=== PATIENT | male | born 1990 | race Caucasian/White ===

== ENCOUNTER 2018-12-16 13:33 | Emergency (ER) | payer MEDICAID ==
--- NOTE | 2018-12-16 14:18 | ERPHSYRPT ---
- History of Present Illness Time Seen by Provider: 12/16/18 14:00 Source: patient Exam Limitations: no limitations Patient Subjective Stated Complaint: Pt states "I have been having quite a bit of pain either in my kidney or liver. It has been going on for over a month." Triage Nursing Assessment: Pt presented alert and orietned X 3, ski pwd Pt ambulates with an upright steady gait, able to speak in clear full sentences. PT in no apparent respiratory distress. Physician History: Patient has pain in the right CVA/back area for the past month, worse over the past 4 days. Timing/Duration: week(s) (4), worse (4 days) Method of Injury: unknown Quality: aching Back Pain Location: paraspinous muscles (right side) Severity of Pain-Max: moderate Severity of Pain-Current: mild Modifying Factors: Worsens With: movement Associated Symptoms: other (feels like it is swollen), No fever, No chills, No sweating, No urinary incontinence, No loss of bowel control, No constipation, No nausea, No vomiting, No problems urinating, No light-headedness, No dizziness , No numbness in legs/feet, No weakness, No sensory/motor loss, No tingling in legs/feet, No lower back pain, No muscle spasms Previous symptoms: different symptoms (history of kidney stones, but concern about possible his liver although denies any abdominal pain), no recent treatment Allergies/Adverse Reactions: No Known Drug Allergies Allergy (Unverified 12/16/18 13:49) Home Medications: No Reportable Medications [No Reported Medications] 12/16/18 [History] Hx Tetanus, Diphtheria Vaccination/Date Given: Yes Hx Influenza Vaccination/Date Given: No Hx Pneumococcal Vaccination/Date Given: No Immunizations Up to Date: Yes - Review of Systems Constitutional: No Fever, No Chills, No Fatigue, No Malaise Eyes: No Symptoms, No Vision Changes Ears, Nose, & Throat: No Symptoms Respiratory: No Cough, No Dyspnea Cardiac: No Chest Pain, No Edema, No Syncope Abdominal/Gastrointestinal: No Abdominal Pain, No Nausea, No Vomiting, No Diarrhea Genitourinary Symptoms: No Dysuria, No Flank Pain Musculoskeletal: Back Pain, No Neck Pain Skin: No Rash Neurological: No Dizziness, No Focal Weakness, No Headache, No Sensory Changes Psychological: No Symptoms Endocrine: No Symptoms Hematologic/Lymphatic: No Easy Bleeding, No Easy Bruising All Other Systems: Reviewed and Negative - Past Medical History Pertinent Past Medical History: No - Past Surgical History Past Surgical History: Yes Other Surgical History: left hand. hernia X 3 - Social History Smoking Status: Former smoker Exposure to second hand smoke: Yes Drug Use: none Patient Lives Alone: No - Nursing Vital Signs Nursing Vital Signs: Initial Vital Signs Temperature 99.2 F 12/16/18 13:44 Pulse Rate 62 12/16/18 13:44 Respiratory Rate 18 12/16/18 13:44 Blood Pressure 146/86 12/16/18 13:44 O2 Sat by Pulse Oximetry 98 12/16/18 13:44 Pain Scale Pain Intensity 4 - Physical Exam General Appearance: no apparent distress, alert Eye Exam: PERRL/EOMI, eyes nml inspection, No scleral icterus Ears, Nose, Throat Exam: normal ENT inspection, pharynx normal Neck Exam: normal inspection, non-tender, supple, full range of motion, No meningismus, No midline tenderness Respiratory Exam: normal breath sounds, lungs clear, airway intact, No respiratory distress, No accessory muscle use, No crackles/rales, No rhonchi, No wheezing, No stridor Cardiovascular Exam: regular rate/rhythm, normal heart sounds, normal peripheral pulses, capillary refill <2 sec Gastrointestinal Exam: soft, normal bowel sounds, No tenderness, No distention, No mass, No guarding, No pulsatile mass, No rebound, No hernia, No hepatomegaly Back Exam: normal inspection, normal range of motion, No CVA tenderness, No vertebral tenderness, No rash Extremity Exam: normal inspection, normal range of motion, pelvis stable, No calf tenderness, No pedal edema Neurologic Exam: alert, oriented x 3, cooperative, 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, normal mood/affect, nml station & gait, sensation nml, No motor deficits Skin Exam: normal color, warm, dry, No rash SpO2 Interpretation: normal SpO2: 98 O2 Delivery: Room Air - Course Nursing assessment & vital signs reviewed: Yes Ordered Tests: Active Orders 24 hr Category Date Time Status CBC W DIFF Stat Lab 12/16/18 14:39 Completed CMP Stat Lab 12/16/18 14:39 Completed UA W/RFX UR CULTURE Stat Lab 12/16/18 14:39 Completed Lab/Rad Data: Laboratory Result Diagrams 12/16/18 14:39 12/16/18 14:39 Laboratory Results 12/16/18 12/16/18 12/16/18 Range/Units 14:39 14:39 14:39 WBC 6.1 (4.0-10.5) K/mm3 RBC 4.54 (4.1-5.6) M/mm3 Hgb 14.4 (12.5-18.0) gm/dl Hct 42.4 (42-50) % MCV 93.4 (78-100) fl MCH 31.7 (26-32) pg MCHC 34.0 (32-36) g/dl RDW 12.5 (11.5-14.0) % Plt Count 181 (150-450) K/mm3 MPV 9.5 (6-9.5) fl Gran % 56.3 (36.0-66.0) % Eos # (Auto) 0.35 (0-0.5) Absolute Lymphs (auto) 1.89 (1.0-4.6) Absolute Monos (auto) 0.35 (0.0-1.3) Lymphocytes % 31.1 (24.0-44.0) % Monocytes % 5.8 (0.0-12.0) % Eosinophils % 5.8 H (0.00-5.0) % Basophils % 1.0 (0.0-0.4) % Absolute Granulocytes 3.42 (1.4-6.9) Basophils # 0.06 (0-0.4) Sodium 142 (137-145) mmol/L Potassium 4.0 (3.5-5.1) mmol/L Chloride 104 (98-107) mmol/L Carbon Dioxide 29 (22-30) mmol/L Anion Gap 13.6 (5-15) MEQ/L BUN 17 (9-20) mg/dL Creatinine 0.94 (0.66-1.25) mg/dL Estimated GFR > 60.0 ML/MIN Glucose 108 H (74-106) mg/dL Calcium 9.4 (8.4-10.2) mg/dL Total Bilirubin 0.50 (0.2-1.3) mg/dL AST 25 (17-59) U/L ALT 18 (0-50) U/L Alkaline Phosphatase 31 L (38-126) U/L Serum Total Protein 7.3 (6.3-8.2) g/dL Albumin 4.3 (3.5-5.0) g/dL Urine Color YELLOW (YELLOW) Urine Appearance CLEAR (CLEAR) Urine pH 6.0 (5-6) Ur Specific [place] 1.016 (1.005-1.025) Urine Protein NEGATIVE (Negative) Urine Ketones NEGATIVE (NEGATIVE) Urine Blood NEGATIVE (0-5) Singh/ul Urine Nitrite NEGATIVE (NEGATIVE) Urine Bilirubin NEGATIVE (NEGATIVE) Urine Urobilinogen NEGATIVE (0-1) mg/dL Ur Leukocyte Esterase NEGATIVE (NEGATIVE) Urine WBC (Auto) 0-2 (0-5) /HPF Urine RBC (Auto) NONE (0-2) /HPF U Epithel Cells (Auto) NONE (FEW) /HPF Urine Bacteria (Auto) NONE (NEGATIVE) /HPF Urine Mucus (Auto) SLIGHT (NEGATIVE) /HPF Urine Culture Reflexed NO (NO) Urine Glucose NEGATIVE (NEGATIVE) mg/dL - Progress Progress: improved Progress Note: 12/16/18 15:04 Patient is doing well and does not complain of any pain at this time. Patient' s father has a history of hepatitis C and I did off him to do the lab draw for a hepatitis panel and followup as an outpatient but he patient declined at this time. He states he'll consider this as he establishes with an outpatient primary care physician. Counseled pt/family regarding: lab results, diagnosis, need for follow-up - Departure Departure Disposition: Home, Extended Care Facility Clinical Impression: Elevated blood pressure reading without diagnosis of hypertension Acute low back pain Qualifiers: Back pain laterality: right Sciatica presence: without sciatica Qualified Code( s): M54.5 - Low back pain Condition: Good Critical Care Time: No Referrals: DOCTOR,NO FAMILY [Primary Care Provider] - SEA JEAN [ACTIVE STAFF] - 12/20/18 Instructions: Flank Pain, Low Back Pain (DC), DASH Diet Additional Instructions: Follow-up as an outpatient to follow-up your back pain and elevated blood pressure as well as any further testing you would like to review. Return immediately to the emergency department if any worse back pain, new weakness, new numbness, new fevers, new blood in urine or stool, new shooting symptoms down both legs or any other concerning sign or symptom that was not present at today's emergency room visit for immediate reevaluation in the emergency department Forms: Work/School Release Form
[2018-12-16 14:39] LABS: Basophil (Absolute #) 0.06 (0-0.4); Eosinophil % 5.8 % (0.00-5.0); Eosinophil (Absolute #) 0.35 (0-0.5); Granulocyte Absolute (ANC) 3.42 (1.4-6.9); Granulocytes % 56.3 % (36.0-66.0); Hematocrit 42.4 % (42-50); Hemoglobin 14.4 gm/dl (12.5-18.0); Lymphocyte (Absolute #) 1.89 (1.0-4.6); Lymphocytes % 31.1 % (24.0-44.0); Mean Cell Volume 93.4 fl (78-100); Mean Corpuscular Hemoglobin 31.7 pg (26-32); Mean Platelet Volume 9.5 fl (6-9.5); Monocyte (Absolute #) 0.35 (0.0-1.3); Monocytes % 5.8 % (0.0-12.0); Platelet Count 181 K/mm3 (150-450); Red Blood Count 4.54 M/mm3 (4.1-5.6); Red Cell Distribution Width 12.5 % (11.5-14.0); White Blood Count 6.1 K/mm3 (4.0-10.5)
[2018-12-16 14:51] LABS: Appearance CLEAR (CLEAR); Bilirubin NEGATIVE (NEGATIVE); Blood NEGATIVE Ery/ul (0-5); Glucose NEGATIVE (NEGATIVE); Ketones NEGATIVE (NEGATIVE); Leukocyte Esterase NEGATIVE (NEGATIVE); Mucus SLIGHT /HPF (NEGATIVE); Nitrite NEGATIVE (NEGATIVE); Protein,Urine Dip NEGATIVE (Negative); Specific Gravity 1.016 (1.005-1.025); Urobilinogen NEGATIVE mg/dL (0-1); WBC 0-2 /HPF (0-5)
[2018-12-16 14:52] LABS: ALBUMIN 4.3 g/dL (3.5-5.0); ALKALINE PHOSPHATASE 31 U/L (38-126); ANION GAP 13.6 MEQ/L (5-15); BLOOD UREA NITROGEN 17 mg/dL (9-20); CHLORIDE 104 mmol/L (98-107); Calcium 9.4 mg/dL (8.4-10.2); Carbon Dioxide 29 mmol/L (22-30); Creatinine 1 0.94 mg/dL (0.66-1.25); Glucose 108 mg/dL (74-106); SGOT/AST 25 U/L (17-59); SGPT/ALT 18 U/L (0-50); SODIUM 142 mmol/L (137-145); Total Protein 7.3 g/dL (6.3-8.2)
[2018-12-16 15:44] VITALS: BP 133/77; PULSE 78; O2SAT 99
== END 2018-12-16 15:42 | disposition home or self-care (01) ==
LOC: ED 13:33
DX: M54.5 Low back pain (principal); R03.0 Elevated blood-pressure reading, without diagnosis of hypertension; M54.9 Dorsalgia, unspecified; Z87.891 Personal history of nicotine dependence
CPT/HCPCS: 36415; 80053; 81001; 85025; 99283

== ENCOUNTER 2019-04-30 16:51 | Emergency (ER) | payer MEDICAID, OTHER ==
[2019-04-30 17:02] VITALS: BP 151/71; O2SAT 99
--- NOTE | 2019-04-30 17:07 | ERPHSYRPT ---
- History of Present Illness Time Seen by Provider: 04/30/19 17:02 Source: patient Exam Limitations: no limitations Physician History: c/o pain in left eye, had something went it to his left eye yesterday and since then it is burning, itchy and painful red. no other symptoms, no vision impairment Timing/Duration: yesterday Location: left eye Severity: mild Apparent Injury: possibly Associated Symptoms: pain, burning, itching, sensitivity to light, redness, foreign body sensation, No decreased vision, No blurred vision, No double vision Visual Assistive Devices: None Chemical Exposure: No Trauma: No Allergies/Adverse Reactions: No Known Drug Allergies Allergy (Verified 04/30/19 17:02) Home Medications: No Reportable Medications [No Reported Medications] 12/16/18 [History] Hx Tetanus, Diphtheria Vaccination/Date Given: Yes Hx Influenza Vaccination/Date Given: No Hx Pneumococcal Vaccination/Date Given: No - Review of Systems Constitutional: No Symptoms Eyes: Eye Redness, Itchy, Tearing, Foreign Body Sensation, No Photophobia, No Vision Changes, No Double Vision Ears, Nose, & Throat: No Symptoms Respiratory: No Symptoms Cardiac: No Symptoms Abdominal/Gastrointestinal: No Symptoms Genitourinary Symptoms: No Symptoms Musculoskeletal: No Symptoms Skin: No Symptoms - Past Medical History Pertinent Past Medical History: No - Past Surgical History Past Surgical History: Yes Other Surgical History: left hand. hernia X 3 - Social History Smoking Status: Former smoker Exposure to second hand smoke: Yes Drug Use: none Patient Lives Alone: No - Physical Exam General Appearance: no apparent distress Vision Acuity Degree Evaluation Phase: Corrected Vision Acuity Right Eye: 20/20 Vision Acuity Left Eye: 20/20 Eye Exam: left eye: conjunctival inflammation, ecchymosis, erythema, bilateral eye: normal inspection, PERRL, EOMI Ears, Nose, Throat Exam: normal ENT inspection Neck Exam: normal inspection Respiratory Exam: normal breath sounds Cardiovascular Exam: regular rate/rhythm Gastrointestinal Exam: soft Extremity Exam: normal inspection Neurologic: alert, oriented x 3, cooperative - Course Nursing assessment & vital signs reviewed: Yes - Progress Progress: unchanged Progress Note: 04/30/19 17:05 tobradex eye drops given in Er. Advised to use 2 drops in left eye four times a day for 10 days Counseled pt/family regarding: diagnosis, need for follow-up - Departure Departure Disposition: Home Clinical Impression: Conjunctivitis Qualifiers: Conjunctivitis type: acute Acute conjunctivitis type: bacterial Laterality: left Qualified Code(s): H10.32 - Unspecified acute conjunctivitis, left eye Condition: Stable Critical Care Time: No Referrals: NARINDER GARCÍA [Primary Care Provider] - Instructions: Conjunctivitis ([place]) (DC) Additional Instructions: Discharge/Care Plan AVILA DESIR was seen on 04/30/19 in the Emergency Room. The patient was counseled regarding Diagnosis,Lab results, Imaging studies, need for follow up and when to return to the Emergency Room. Prescriptions given: Discharge Note I have spoken with the patient and/or caregivers. I have explained the patient' s condition, diagnosis and treatment plan based on the information available to me at this time. I have answered the patient's and/or caregiver's questions and addressed any concerns. The patient and/or caregivers have as good understanding of the patient's diagnosis, condition and treatment plan as can be expected at this point. The vital signs have been stable. The patient's condition is stable and appropriate for discharge from the emergency department. The patient will pursue further outpatient evaluation with the primary care physician or other designated or consulting physician as outlined in the discharge instructions. The patient and/or caregivers are agreeable to this plan of care and follow-up instructions have been explained in detail. The patient and/or caregivers have received these instruction. The patient/and or caregivers are aware that any significant change in condition or worsening of symptoms should prompt an immediate return to this or the closest emergency department or call 911. AVILA DESIR was seen on 04/30/19 n the Emergency Room. At that time you were treated for an emergent condition, during your visit Laboratory, Radiology and/or other procedures may have been ordered. It is very important that you follow-up with your Primary Care Physician NARINDER GARCÍA within the next 24-48 hours to review your Emergency Room visit and the final results of testing that was ordered. Some test results such as Urine Cultures, Blood Cultures, and other cultures if ordered will not be finalized for 24-48 hours. If you do not have a Primary Care Provider please call the medical records department at [phone] ext [phone] to obtain a copy of your results or you may sign into our patient portal to obtain these results by visiting us @ [email or web address] and completing the following steps: 1. Click on the Patient Portal link 2. Click the Patient Self Enrollment Link to complete the enrollment form and entering your 3. Once the enrollment form is completed you will receive an email with a temporary ID and password at the email address you provided. 4. Next choose a user name and password. Your user name must be at least 4 characters long and your password must be at least 4 characters long. 5. Choose a security question from the list and provide your answer to the question. If you already have signed into the Health Portal you may access your Health Care Information 13/10 by the following steps: 1. Login to our website @ [email or web address] 2. Enter your original user name and password. FAQS The [facility] Health Portal is an online tool that contains your Lab Results, Radiology Reports, Visit History, Discharge Instructions and Health Summary Lab and Radiology Results will not be available for 72 hours on the portal. The Portal is a secure site, passwords are encryted and URLs are re-written so they cannot be copied and pasted. You and authorized family members are the only ones who can access your Portal. Also there is a timeout feature that protects your information if you leave the Portal page open. If you have technical difficulty please use the Contact Us link on the page this will allow you to submit any questions you have regarding the Portal or you may contact the Medical Record Department at [phone] ext [phone].
[2019-04-30 17:18] VITALS: PULSE 68
== END 2019-04-30 17:35 | disposition home or self-care (01) ==
LOC: ED 16:51
DX: H10.32 Unspecified acute conjunctivitis, left eye (principal)
CPT/HCPCS: 99283; A9270-GY

== ENCOUNTER 2024-01-07 20:38 | Emergency (ER) | payer OTHER ==
[2024-01-07 20:55] VITALS: TEMP 97.7
[2024-01-07 21:42] VITALS: BP 141/78; PULSE 52; RESP 17; O2SAT 96
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
--- NOTE | 2024-01-08 09:20 | XRAY ---
Indication: Left rib injury 3 days ago. Comparison: None 2 view left ribs demonstrates minimal dextroscoliosis centered at T8. No other bony, articular, or soft tissue abnormalities.
== END 2024-01-07 21:59 | disposition home or self-care (01) ==
LOC: ED 20:38
DX: S20.212A Contusion of left front wall of thorax, initial encounter (principal); Y04.0XXA Assault by unarmed brawl or fight, initial encounter; R07.9 Chest pain, unspecified; I10 Essential (primary) hypertension; Z79.899 Other long term (current) drug therapy
CPT/HCPCS: 71100; 99282